=== PATIENT | male | born 2000 | race African-American/Black ===

== ENCOUNTER 2023-02-09 04:33 | Emergency (ER) | payer SELFPAY ==
[~2023-02-09] VITALS: Ht 172.7 cm; Wt 59.0 kg
[2023-02-09] MEDS ORDERED: MORPHINE SULFATE 4 MG/ML CPJ (NOT FOR IM USE) IV ONE (05:30)
[2023-02-09] MEDS ORDERED: LIDOCAINE HCL 2%/EPINEPHRINE/PF 10 ML VIAL INFIL ONE (05:30)
[2023-02-09] MEDS ORDERED: LIDOCAINE 2%/EPINEPHRINE 1:200,000 20 ML VIAL INJ NR (06:00)
[2023-02-09] MEDS ORDERED: KETAMINE HCL 50 MG/ML 10ML IV ONE (07:45)
[2023-02-09] MEDS ORDERED: PROPOFOL 200MG/20ML VIAL IV ONE (07:45)
[2023-02-09 09:00] VITALS: TEMP 98.6; O2SAT 100
[2023-02-09 09:11] VITALS: BP 134/74; PULSE 59; RESP 18
== END 2023-02-09 10:17 | disposition home or self-care (01) ==
LOC: ER 04:33
DX: S43.015A Anterior dislocation of left humerus, initial encounter (principal); X58.XXXA Exposure to other specified factors, initial encounter; Y93.89 Activity, other specified; Y92.89 Other specified places as the place of occurrence of the external cause; Y99.8 Other external cause status
CPT/HCPCS: 73030; 23650; 96374; 99152; 99285; J3490 ×2; J2704; J2270; Z7610 ×5; A4565